=== PATIENT | male | born 1945 | race Caucasian/White ===

== ENCOUNTER 2018-02-02 08:50 | Observation (INO) | payer MEDICARE, BC ==
--- NOTE | 2018-01-25 23:16 | HP ---
AMENDED REPORT TO CORRECT CC PHYSICIAN NAME CC: Dr. Burak Carter; Dr. Howard * ADMITTING HISTORY AND PHYSICAL: DATE OF ADMISSION: 02/02/18. ADMITTING DIAGNOSES: 1. Benign prostatic hypertrophy. 2. Recurrent urinary tract infection. PLANNED PROCEDURE: Transurethral resection of prostate. SURGEON: Dr. Del Rio. HISTORY OF PRESENT ILLNESS: Kunal Hernandez is a 73-year-old gentleman with a longstanding history of symptoms related to prostate enlargement. I had originally evaluated him about 18 years ago and over the last 18 years, he had multiple issues including recurrent episodes of gross hematuria related to prostate enlargement and more recently recurrent urinary tract infection. He has been tried on medical therapy and has been on Flomax 0.4 mg twice a day, and has also been taking finasteride 5 mg off and on, and continues to have bothersome body symptoms and recurrent urinary tract infection. PAST MEDICAL HISTORY: Significant for atrial fibrillation, type 2 diabetes mellitus, osteoarthritis, and polyneuropathy. PAST SURGICAL HISTORY: Significant for right total knee replacement, abdominal hernia repair, varicose vein stripping, carpal tunnel bilaterally, and multiple knee arthroscopies. MEDICATIONS ON ADMISSION: 1. Coumadin, which is currently on hold. 2. Lovastatin 40 mg daily. 3. Metformin 500 mg twice a day. 4. Flomax 0.4 mg twice a day. 5. Tradjenta 5 mg daily. 6. Lisinopril 2.5 mg daily. 7. Toujeo 300 units/mL, use 35 units subcutaneously q.a.m. 8. Finasteride 5 mg a day. 9. Viagra 100 mg p.r.n. ALLERGIES: PENICILLIN (anxiety and itching). REVIEW OF SYSTEMS: He is fairly active physically and denies any chest pain or shortness of breath. PHYSICAL EXAMINATION VITAL SIGNS: Blood pressure is 124/76, pulse 73 per minute, oxygen saturation 98% on room air. LUNGS: Clear bilaterally. CARDIOVASCULAR: S1, S2. ABDOMEN: Soft without masses. IMPRESSION: A 73-year-old gentleman with longstanding history of prostate enlargement and increased postvoid residual and recurrent urinary tract infection and also episodic gross hematuria. I have discussed the procedure of transurethral resection of prostate and possible risk of bleeding, infection, persistent voiding, and erectile dysfunction, and permanent retrograde ejaculation. All of his questions have been answered. PLAN/RECOMMENDATIONS: Transurethral resection of prostate. [id number]/[facility] #: [id number] AJSIEL
[~2018-02-02 08:50] MED LIST: Buffered Lidocaine 0.9% SYRIN* 5 ML/SYR SYRINGE INTRADERM ONE; Famotidine IV* 10 MG/ML 2 ML (20 mg) IV ONE; Gentamicin ADULT (*) 160 MG in NS 0.9% 100 ML* 100 ML IVPB ONE
[2018-02-02] MEDS ORDERED: Famotidine IV* 10 MG/ML 2 ML (20 mg) ONE (09:01)
[2018-02-02] MEDS ORDERED: Levofloxacin 500 MG IVPREMIX(* 500 MG/100 ML BAG IVPB ONE (09:01)
[2018-02-02 09:41] LABS: ABS Basophils 0 10^3/ul (0-0.2); ABS Eosinophils 0.1 10^3/ul (0-0.6); ABS Lymphocytes 2.1 10^3/ul (1.0-4.8); ABS Monocytes 0.6 10^3/ul (0-0.8); ABS Neutrophils 2.3 10^3/ul (1.5-7.7); ABS Nucleated RBC 0 10^3/ul; Eosinophil % 2.8 % (0-6); Hematocrit 41 % (42-52); Hemoglobin 14.1 g/dl (14.0-18.0); Lymphocyte % 39.8 % (25-47); Mean Corpuscular HGB Conc 34 g/dl (31-36); Mean Corpuscular Hemoglobin 32 pg (27-31); Mean Corpuscular Volume 92 fL (80-94); Nucleated Red Blood Cells % 0.1; Platelet Count 157 10^3/ul (150-450); Red Blood Count 4.49 10^6/ul (4.00-5.40); Red Cell Distribution Width 14 % (10.5-15); White Blood Count 5.2 10^3/ul (3.5-10.8)
[2018-02-02 09:48] LABS: INR 0.93 (0.77-1.02)
[2018-02-02 09:57] LABS: EGFR Non-African American 101.1 (>60)
[2018-02-02] MEDS ORDERED: fentaNYL* 50 MCG/ML 2 ML VIAL (100 MCG VIAL) ONE (09:59)
[2018-02-02] MEDS ORDERED: Midazolam* 1 MG/ML 5 ML VIAL (5 MG) ONE (09:59)
[2018-02-02] MEDS ORDERED: oxyCODONE/Acetamin 5/325 MG* TAB PO PRN (11:07)
[2018-02-02] MEDS ORDERED: Ondansetron INJ* 2 MG/ML VIAL ONE (12:06)
[2018-02-02] MEDS ORDERED: Fluorescein 10% INJ* 100 MG/ML AMP ONE (12:06)
[2018-02-02] MEDS ORDERED: Furosemide IV* 10 MG/ML 2 ML VIAL (20 MG) ONE (12:06)
[2018-02-02] MEDS ORDERED: Lidocaine 2% PF * 5 ML VIAL ONE (12:06)
[2018-02-02] MEDS ORDERED: Ketorolac INJ* 30 MG/ML 1 ML VIAL ONE (12:06)
[2018-02-02] MEDS ORDERED: Dexamethasone IV* 4 MG/ML 1 ML (4 MG) ONE (12:06)
[2018-02-02] MEDS ORDERED: Propofol* 10 MG/ML 20 ML BTL IV PUSH ONE (12:06)
[2018-02-02] MEDS ORDERED: Bupivacaine-MPF SPINAL* 7.5 MG/ML - 2ML AMP ONE (12:08)
[2018-02-02] MEDS ORDERED: Acetaminophen TAB* 325 MG PO PRN (12:17)
[2018-02-02] MEDS ORDERED: DiMENhydriNATE IV* 50 MG/ML VIAL IV PUSH PRN (12:17)
[2018-02-02] MEDS ORDERED: Naloxone* 0.4 MG/ML 1 ML VIAL IV PRN (12:17)
[2018-02-02] MEDS ORDERED: oxyCODONE TAB* 5 MG TAB PO PRN (12:17)
[2018-02-02] MEDS ORDERED: HYDROmorphone INJ1* 1 MG/ML SYRINGE IV PRN (12:17)
[2018-02-02] MEDS ORDERED: Iohexol 180 (CONTRAST) 10 ML SDV IV ONE (12:21)
[2018-02-02] MEDS: Docusate CAP* 100 MG PO SCH ×2 (13:50→23:13)
[2018-02-02] MEDS: Oxybutynin TAB* 5 MG PO SCH ×3 (14:36→23:13)
--- NOTE | 2018-02-02 15:36 | RAD ---
INDICATION: Stent placement COMPARISONS: None relevant TECHNIQUE: Fluoroscopy was provided for a retrograde pyelogram and stent placement. Total fluoroscopy time is: 1 second FINDINGS: Spot images demonstrate a ureteral stent. IMPRESSION: FLUOROSCOPY WAS PROVIDED FOR A RETROGRADE PYELOGRAM AND STENT PLACEMENT CPT II Codes: G9500
[2018-02-02] MEDS ORDERED: Atorvastatin* 10 MG TAB PO SCH (18:00)
[2018-02-02] MEDS: Acetaminophen TAB* 325 MG PO PRN (18:40)
[2018-02-02] MEDS: metFORMIN* 500 MG TAB PO SCH (23:13)
[2018-02-03] MEDS: Acetaminophen TAB* 325 MG PO PRN (01:54)
[2018-02-03] MEDS: Oxybutynin TAB* 5 MG PO SCH (05:55)
[2018-02-03] MEDS ORDERED: Insulin GLARGINE(*) 1 UNITS UNIT SUBCUT SCH (09:00)
[2018-02-03] MEDS ORDERED: Digoxin TAB* 0.125 MG PO SCH (09:00)
[2018-02-03] MEDS ORDERED: Multivitamins/Minerals TAB PO SCH (09:00)
[2018-02-03] MEDS ORDERED: Lisinopril TAB* 5 MG PO SCH (09:00)
[2018-02-03] MEDS ORDERED: Linagliptin (NF) 5 MG TAB PO SCH (09:00)
[2018-02-03] MEDS ORDERED: Ciprofloxacin TAB* 500 MG PO SCH (09:00)
[2018-02-03] MEDS: Docusate CAP* 100 MG PO SCH (09:58)
[2018-02-03] MEDS: metFORMIN* 500 MG TAB PO SCH (09:58)
[2018-02-03 10:36] VITALS: BP 150/75
--- NOTE | 2018-02-03 13:23 | OP ---
CC: Dr. Burak Carter; Dr. Del Rio OPERATIVE SUMMARY: DATE OF OPERATION: 02/02/18 DATE OF : 49 SURGEON: Diego Del Rio MD ANESTHESIA: Spinal. ANESTHESIOLOGIST: Dr. Jameson. PRE-OP DIAGNOSIS: Benign prostatic enlargement. POST-OP DIAGNOSIS: Benign prostatic enlargement. OPERATIVE PROCEDURE: 1. Transurethral resection of prostate. 2. Transurethral incision of bladder neck. 3. Right retrograde. 4. Right ureteral stent insertion. COMPLICATIONS: None. BLOOD LOSS: Approximately 100 cc. OPERATIVE FINDINGS: 1. Stricture, penile urethra. 2. Moderately enlarged fibrotic prostate with a median lobe component very close to ureteral orifice s. 3. Multiple bladder diverticula. STENT USED: An 8-Argentine stent, right ureter. INDICATIONS: Kunal Hernandez is a 73-year-old gentleman who has had long-standing symptoms related to prostate enlargement and has failed medical therapy. DESCRIPTION OF PROCEDURE: After induction of spinal anesthesia, the patient was placed in dorsal lit hotomy position. Sequential compression devices were in place and functioning. Initial evaluation r evealed a stricture in the penile urethra, which was carefully dilated. The remainder of the urethra was unremarkable. The prostate was moderately enlarged. The trigone was located fairly close to th e median lobe of the prostate. The bladder was examined. There are multiple bladder diverticula not ed in the posterior wall, especially on the left side. I could visualize the interior of the diverti cula and there was no evidence of any suspicious lesions noted. Transurethral resection of the prostate was carried out from the bladder neck down to the veru. The prostate was somewhat fibrotic and somewhat difficult to resect and the resection was carried out in the standard fashion with the floor of the prostate being resected, followed by the lateral lobe tiss ue and the anterior tissue. Because of the proximity of the ureteral orifices to the median lobe, I decided to place a right stent and this was done under fluoroscopic monitoring with an 8-Argentine stent placed successfully with good proximal and distal positioning obtained. Transurethral incision of the bladder neck was carried out in an effort to reduce the chances of post operative bladder neck contracture. A 24-Argentine Joy was introduced without difficulty and connecte d to a drainage pack. The patient tolerated the procedure satisfactorily and was transferred back to the recovery area in stable condition. [id number]/[facility] #: [id number]
--- NOTE | 2018-02-04 05:58 | DS ---
CC: Dr. Carter; Dr. Howard, [facility] * DISCHARGE SUMMARY: DATE OF ADMISSION: 02/02/18 DATE OF DISCHARGE: 02/03/18 ADMITTING DIAGNOSIS: Benign prostatic hypertrophy. SURGICAL PROCEDURE ON THIS ADMISSION: On 02/02/18, transurethral resection of prostate and right stent insertion. ADMITTING HISTORY AND HOSPITAL COURSE: Kunal Hernandez is a 73-year-old gentleman with a longstanding history of voiding symptoms related to prostate enlargement who has failed medical therapy. For details, please see admitting history and physical. On 02/02/18, Mr. Hernandez underwent transurethral resection of prostate and right stent insertion under spinal anesthesia. Surgery was smooth and uneventful. He was kept overnight for observation and was examined postoperatively on 02/02/18, and again in the morning on 02/03/18, and was discharged home with a Joy catheter in place in stable condition for followup as per outpatient protocol. [id number]/[facility] #: [id number] MTDD
== END 2018-02-03 11:15 | disposition home or self-care (01) ==
LOC: OR 08:50 → SSU 11:07
PROVIDERS: ADMIT Urology; ATTEND Urology
PROC: 0VT08ZZ Resection of Prostate, Via Natural or Artificial Opening Endoscopic (ICD-10-PCS; principal; 2018-02-02 11:00)
DX: Z88.0 Allergy status to penicillin (principal); N40.1 Benign prostatic hyperplasia with lower urinary tract symptoms; R33.8 Other retention of urine; E11.9 Type 2 diabetes mellitus without complications; I48.91 Unspecified atrial fibrillation; N39.0 Urinary tract infection, site not specified; Z79.899 Other long term (current) drug therapy; Z79.01 Long term (current) use of anticoagulants
CPT/HCPCS: 36415; 74420; 80048; 85025; 85610; 88305; A9270-GY; C1876; G0378; J1100; J1580; J1885; J1940; J1956; J2250; J2405; J2704; J3010

== ENCOUNTER 2021-02-26 10:58 | Inpatient (IN) ==
[~2021-02-26 10:58] MED LIST changes: -Buffered Lidocaine 0.9% SYRIN* 5 ML/SYR SYRINGE INTRADERM ONE; +Buffered Lidocaine 1% SYRIN 1 ml INTRADERM ONE; -Famotidine IV* 10 MG/ML 2 ML (20 mg) IV ONE; -Gentamicin ADULT (*) 160 MG in NS 0.9% 100 ML* 100 ML IVPB ONE; +Lactated Ringers 1000 ml BAG 1,000 ML IV SCH; +Lidocaine 2% PF 5 ML VIAL ONE; +Midazolam 2 mg/2 ml VIAL 1 mg/ml 2 ml VIAL (2 mg) ONE; +Rocuronium 50 mg VIAL 10 mg/ml 5 ml VIAL (50 mg) ONE; +fentaNYL 250 mcg/5 ml 50 MCG/ML 5 ml VIAL (250 MCG) ONE
[2021-02-26] MEDS ORDERED: Propofol 10 MG/ML 20 ML BTL ONE (10:59)
[2021-02-26] MEDS ORDERED: Clindamycin 900 MG/D5W BAG 900 MG/50 ML BAG IVPB ONE (11:18)
[2021-02-26] MEDS ORDERED: Heparin 5000 UNITS/ML 1 mL VIAL ONE (11:18)
[2021-02-26] MEDS ORDERED: Dextrose 50% Syringe 50 ml 25 GM/50 ML SYRINGE ONE (11:47)
[2021-02-26] MEDS ORDERED: Bupivacaine 0.25% SDV 30 ML ONE (12:50)
[2021-02-26] MEDS ORDERED: Lidocaine 1% w EPI 1:100,000 MDV 20 ML VIAL ONE (12:50)
[2021-02-26] MEDS ORDERED: Bupivacaine 0.5% SDV PF 30ML VIAL ONE ×2 (13:09→19:30)
[2021-02-26] MEDS ORDERED: Ondansetron 4 mg VIAL 2 MG/ML 2 ml VIAL ONE (13:35)
[2021-02-26] MEDS ORDERED: Dexamethasone IV 4 MG/ML VIAL 1 ml VIAL ONE (13:35)
[2021-02-26] MEDS ORDERED: HYDROmorphone 1 MG/1 ML SYRINGE ONE ×2 (14:05→16:31)
[2021-02-26] MEDS ORDERED: Rocuronium 50 mg VIAL 10 mg/ml 5 ml VIAL (50 mg) ONE ×2 (15:26→17:26)
[2021-02-26] MEDS ORDERED: fentaNYL 250 mcg/5 ml 50 MCG/ML 5 ml VIAL (250 MCG) ONE (16:31)
[2021-02-26] MEDS ORDERED: Albumin Human 5% 12.5 GM/250 ML BTL IV ONE (18:00)
[2021-02-26] MEDS ORDERED: Sugammadex 500 MG/5 ML 5 ml VIAL IV PUSH ONE (18:49)
[2021-02-26] MEDS ORDERED: Phenylephrine 40 mcg/mL 10mL (400mcg) SYRINGE ONE (19:32)
[2021-02-26] MEDS ORDERED: Ondansetron 4 mg VIAL 2 MG/ML 2 ml VIAL IV PRN (19:38)
[2021-02-26] MEDS ORDERED: Dextrose 50% Syringe 50 ml 25 GM/50 ML SYRINGE IV PUSH PRN (19:59)
[2021-02-26] MEDS ORDERED: DiMENhydriNATE IV 50 mg/ml 1 ml VIAL IV PUSH PRN (20:30)
[2021-02-26] MEDS ORDERED: HYDROmorphone 1 MG/1 ML SYRINGE IV PRN (20:30)
[2021-02-26] MEDS ORDERED: Acetaminophen IV 1 GM/100ML 100 ML IV ONE (20:30)
[2021-02-26] MEDS ORDERED: diPHENhydraMINE IV 50 MG/ML 1 ml VIAL (BENADRYL) IV PRN (20:30)
[2021-02-26] MEDS ORDERED: Naloxone 0.4 mg VIAL 0.4 mg/ml 1 ml VIAL IV PRN (20:30)
[2021-02-26] MEDS ORDERED: HYDROmorphone 0.5 MG/0.5 ML SYRINGE IV SLOW PU PRN (21:44)
[2021-02-27] MEDS ORDERED: Pneumococcal Vac 23-Polyvalent IM ONE (09:00)
[2021-02-27 09:20] LABS: ABS Lymphocytes 1.6 10^3/ul (1.0-4.8); ABS Monocytes 1.1 10^3/ul (0-0.8); ABS Neutrophils 6.5 10^3/ul (1.5-7.7); Hematocrit 40 % (42-52); Hemoglobin 13.7 g/dL (14.0-18.0); Mean Corpuscular HGB Conc 34 g/dL (31-36); Mean Corpuscular Hemoglobin 33 pg (27-31); Mean Corpuscular Volume 96 fL (80-94); Mean Platelet Volume 7.9 fL (7.4-10.4); Platelet Count 146 10^3/uL (150-450); Red Blood Count 4.15 10^6 /uL (4.18-5.48); Red Cell Distribution Width 14 % (10-15); White Blood Count 9.1 10^3/uL (3.5-10.8)
[2021-02-27 09:36] LABS: Calcium 8.7 mg/dL (8.6-10.3); Potassium 4.3 mmol/L (3.5-5.0)
[2021-02-27] MEDS: Enoxaparin 40 MG/0.4 ML SYR SUBCUT SCH (13:02)
[2021-02-27] MEDS: Latanoprost 0.005% 2.5 ml BTL BOTH EYES SCH (22:32)
[2021-02-28 06:12] LABS: ABS Lymphocytes 1.2 10^3/ul (1.0-4.8); ABS Monocytes 0.8 10^3/ul (0-0.8); ABS Neutrophils 5.5 10^3/ul (1.5-7.7); Eosinophil % 0.1 %; Hematocrit 39 % (42-52); Hemoglobin 13.4 g/dL (14.0-18.0); Lymphocyte % 16.2 %; Mean Corpuscular HGB Conc 34 g/dL (31-36); Mean Corpuscular Hemoglobin 32 pg (27-31); Mean Corpuscular Volume 94 fL (80-94); Mean Platelet Volume 7.7 fL (7.4-10.4); Platelet Count 118 10^3/uL (150-450); Red Blood Count 4.12 10^6 /uL (4.18-5.48); Red Cell Distribution Width 14 % (10-15); White Blood Count 7.6 10^3/uL (3.5-10.8)
[2021-02-28 06:26] LABS: Potassium 3.9 mmol/L (3.5-5.0)
[2021-02-28] MEDS: Enoxaparin 40 MG/0.4 ML SYR SUBCUT SCH (12:59)
[2021-02-28] MEDS: Latanoprost 0.005% 2.5 ml BTL BOTH EYES SCH (20:39)
[2021-02-28] MEDS: PTO: Brimonidine/Timolol 0.2%/0.5% OPTH(NF) SOL 5 ML BOTH EYES SCH (23:00)
[2021-03-01 06:44] LABS: ABS Monocytes 0.8 10^3/ul (0-0.8); ABS Neutrophils 5.4 10^3/ul (1.5-7.7); Eosinophil % 0.4 %; Hematocrit 37 % (42-52); Hemoglobin 13.1 g/dL (14.0-18.0); Lymphocyte % 13.8 %; Mean Corpuscular HGB Conc 35 g/dL (31-36); Mean Corpuscular Hemoglobin 33 pg (27-31); Mean Corpuscular Volume 94 fL (80-94); Mean Platelet Volume 8.3 fL (7.4-10.4); Platelet Count 126 10^3/uL (150-450); Red Blood Count 3.98 10^6 /uL (4.18-5.48); Red Cell Distribution Width 14 % (10-15); White Blood Count 7.2 10^3/uL (3.5-10.8)
[2021-03-01 07:01] LABS: Calcium 8.8 mg/dL (8.6-10.3); Potassium 4.1 mmol/L (3.5-5.0)
[2021-03-01] MEDS: PTO: Brimonidine/Timolol 0.2%/0.5% OPTH(NF) SOL 5 ML BOTH EYES SCH ×2 (09:30→23:24)
[2021-03-01 17:18] LABS: Hematocrit 39 % (42-52); Hemoglobin 13.4 g/dL (14.0-18.0); Mean Corpuscular HGB Conc 35 g/dL (31-36); Mean Corpuscular Hemoglobin 33 pg (27-31); Mean Corpuscular Volume 94 fL (80-94); Mean Platelet Volume 8.2 fL (7.4-10.4); Platelet Count 157 10^3/uL (150-450); Red Cell Distribution Width 14 % (10-15); White Blood Count 9.4 10^3/uL (3.5-10.8)
[2021-03-01] MEDS: Latanoprost 0.005% 2.5 ml BTL BOTH EYES SCH (23:23)
[2021-03-02 07:43] LABS: ABS Eosinophils 0.1 10^3/ul (0-0.6); ABS Lymphocytes 1.6 10^3/ul (1.0-4.8); ABS Monocytes 0.8 10^3/ul (0-0.8); ABS Neutrophils 5.1 10^3/ul (1.5-7.7); Eosinophil % 1.1 %; Hematocrit 36 % (42-52); Hemoglobin 12.4 g/dL (14.0-18.0); Lymphocyte % 20.9 %; Mean Corpuscular HGB Conc 34 g/dL (31-36); Mean Corpuscular Hemoglobin 32 pg (27-31); Mean Corpuscular Volume 94 fL (80-94); Platelet Count 147 10^3/uL (150-450); Red Blood Count 3.83 10^6 /uL (4.18-5.48); Red Cell Distribution Width 14 % (10-15); White Blood Count 7.7 10^3/uL (3.5-10.8)
[2021-03-02 07:56] VITALS: BP 149/76
[2021-03-02 08:08] LABS: Calcium 8.4 mg/dL (8.6-10.3); Potassium 3.9 mmol/L (3.5-5.0)
[2021-03-02] MEDS: PTO: Brimonidine/Timolol 0.2%/0.5% OPTH(NF) SOL 5 ML BOTH EYES SCH (09:05)
== END 2021-03-02 11:49 | disposition home or self-care (01) | DRG 330 ==
LOC: AA 10:58 → SSU 21:38
PROVIDERS: ADMIT Surgery; ATTEND Surgery